=== PATIENT | male | born 1940 | race Two or more races ===

== ENCOUNTER 2017-06-16 13:28 | Outpatient (CLI) | payer OTHER | END 2017-06-16 13:29 | disposition home or self-care (01) | LOC: RAD 13:28 | DX: I73.89 Other specified peripheral vascular diseases (principal) ==

== ENCOUNTER → 2017-06-16 | Outpatient (CLI) | payer OTHER | END | disposition home or self-care (01) | LOC: TOM 09:42 | DX: K57.32 Diverticulitis of large intestine without perforation or abscess without bleeding (principal) ==

== ENCOUNTER → 2017-08-11 | Outpatient (CLI) | payer OTHER | END | disposition home or self-care (01) | LOC: RAD 501 14:08 | DX: M16.11 Unilateral primary osteoarthritis, right hip (principal); J45.998 Other asthma ==

== ENCOUNTER 2018-04-22 16:03 | Outpatient (CLI) | payer OTHER ==
[~2018-04-22 16:03] MED LIST: ZANAFLEX2 MG PO
== END 2018-04-22 16:09 | disposition home or self-care (01) ==
LOC: RAD 16:03
DX: J45.998 Other asthma (principal)

== ENCOUNTER 2018-05-12 07:20 | Outpatient (CLI) | payer OTHER | END 2018-05-12 08:07 | disposition home or self-care (01) | LOC: SONOGRAMA 07:20 | DX: Q44.6 Cystic disease of liver (principal) ==

== ENCOUNTER 2018-11-11 07:47 | Outpatient (CLI) | payer OTHER | END 2018-11-11 08:00 | disposition home or self-care (01) | LOC: RAD 07:47 | DX: N20.0 Calculus of kidney (principal); M16.0 Bilateral primary osteoarthritis of hip ==

== ENCOUNTER 2022-07-09 12:52 | Outpatient (CLI) | payer OTHER | END 2022-07-09 12:56 | disposition home or self-care (01) | LOC: SONOGRAMA 12:52 | PROVIDERS: ATTEND Specialist | DX: I70.0 Atherosclerosis of aorta (principal); E03.9 Hypothyroidism, unspecified ==

== ENCOUNTER 2022-08-27 07:23 | Outpatient (CLI) | payer OTHER | END 2022-08-27 07:24 | disposition home or self-care (01) | LOC: NUCLEAR 07:23 | PROVIDERS: ATTEND Internal Medicine Cardiovascular Disease | DX: G45.9 Transient cerebral ischemic attack, unspecified (principal); I25.10 Atherosclerotic heart disease of native coronary artery without angina pectoris | CPT/HCPCS: 78452; 93017; 93882; A9500 ==

== ENCOUNTER 2022-12-25 07:40 | Outpatient (CLI) | payer OTHER | END 2022-12-25 07:43 | disposition home or self-care (01) | LOC: TOM 07:40 | PROVIDERS: ATTEND Specialist | DX: K40.30 Unilateral inguinal hernia, with obstruction, without gangrene, not specified as recurrent (principal) ==

== ENCOUNTER 2023-04-17 08:24 | Emergency (ER) | payer OTHER ==
[~2023-04-17] VITALS: Ht 170.2 cm; Wt 67.6 kg
[2023-04-17] MEDS ORDERED: SYNTHROID137 MCG PO (08:36)
[2023-04-17] MEDS ORDERED: CRESTOR20 MG PO (08:36)
[2023-04-17] MEDS ORDERED: DETROL LA4 MG PO (08:37)
[2023-04-17] MEDS ORDERED: PROSCAR5 MG PO (08:37)
[2023-04-17] MEDS ORDERED: DICLOFENAC SODI75 MG PO (11:34)
[2023-04-17] MEDS ORDERED: NORFLEX100MG PO (11:34)
== END 2023-04-17 10:23 | disposition home or self-care (01) ==
LOC: ER 08:25
DX: M54.50 Low back pain, unspecified (principal); M62.838 Other muscle spasm
CPT/HCPCS: 36415; 72100; 96372; 99284; J1885; J3301

== ENCOUNTER 2024-03-24 14:04 | Emergency (ER) | payer OTHER ==
[~2024-03-24] VITALS: Ht 170.2 cm; Wt 67.1 kg
[~2024-03-24 14:04] MED LIST changes: +CRESTOR20 MG PO; +DETROL LA4 MG PO; +DICLOFENAC SODI75 MG PO; +NORFLEX100MG PO; +PROSCAR5 MG PO; +SYNTHROID137 MCG PO
[2024-03-24] MEDS ORDERED: CIALIS5 MG PO (14:41)
== END 2024-03-24 15:36 | disposition home or self-care (01) ==
LOC: ER 14:06
DX: R00.2 Palpitations (principal); N40.0 Benign prostatic hyperplasia without lower urinary tract symptoms

== ENCOUNTER 2024-08-26 07:07 | Outpatient (CLI) | payer OTHER ==
[~2024-08-26 07:07] MED LIST changes: +CIALIS5 MG PO
== END 2024-08-26 07:11 | disposition home or self-care (01) ==
LOC: SONOGRAMA 07:07
PROVIDERS: ATTEND Specialist
DX: K75.81 Nonalcoholic steatohepatitis (NASH) (principal)

== ENCOUNTER 2025-01-13 07:48 | Outpatient (CLI) | payer OTHER | END 2025-01-13 07:53 | disposition home or self-care (01) | LOC: TOM 07:48 | PROVIDERS: ATTEND Specialist | DX: Z12.11 Encounter for screening for malignant neoplasm of colon (principal) ==